=== PATIENT | female | born 1980 | race Caucasian/White ===

== ENCOUNTER 2017-08-20 10:45 | Outpatient (CLI) | payer MEDICARE, BC ==
[2017-08-20] MEDS ORDERED: SYNTHROID100 MCG PO (12:18)
[2017-08-20 12:38] LABS: BASOPHILS 0.3 % (0-2); HEMATOCRIT 45.1 % (36.0-48.0); HEMOGLOBIN 14.8 g/dL (12-16); IMMATURE GRANULOCYTES 0.3 % (0-5); LYMPHOCYTES 24.6 % (15-50); MCHC 32.8 g/dL (31.0-37.0); MCV 88.4 fL (80.0-100.0); MEAN PLATELET VOLUME 10.3 fL (7.4-10.4); MONOCYTES 8.5 % (2-11); NEUTROPHILS 65.3 % (40-80); PLATELET COUNT 332 10x3/uL (130-400); RDW 13.5 % (11.5-14.5)
[2017-08-20 12:47] LABS: CALC OSMOLALITY 275 mosm/kg (275-300); CALCIUM 9.1 mg/dL (8.5-10.1); CARBON DIOXIDE 28.9 mmol/L (21.0-32.0); CHLORIDE - SERUM 104 mmol/L (98-107); CREATININE - SERUM 0.8 mg/dL (0.6-1.3); GLUCOSE 99 mg/dL (74-106); POTASSIUM - SERUM 3.7 mmol/L (3.5-5.1); SODIUM 140 mmol/L (136-145); UREA NITROGEN 5 mg/dL (7-18); eGFR NON AFRICAN AMERICAN 85 mL/min (90-120)
--- NOTE | 2017-08-20 15:56 | NUR ---
PATIENT REQUESTED [employer] FOR DAY OF SURGERY. SANDRA THOMPSON, NURSING MICA MACHINE OPERATOR NOTIFIED.
[2017-09-13 11:33] VITALS: BMI 31.0
== END 2017-08-20 23:59 | disposition home or self-care (01) ==
LOC: D.LAB 10:45 → EDSTATUS 08-23 10:45 → D.PAN 08-23 10:45 → D.OPS 08-23 10:45 → D.LAB 08-23 10:45
PROVIDERS: Surgery
DX: K64.9 Unspecified hemorrhoids (principal); Z01.810 Encounter for preprocedural cardiovascular examination; Z01.811 Encounter for preprocedural respiratory examination; Z01.812 Encounter for preprocedural laboratory examination; Z53.9 Procedure and treatment not carried out, unspecified reason

== ENCOUNTER 2017-09-13 08:59 | Day surgery (SDC) | payer MEDICARE, BC ==
--- NOTE | 2017-09-12 08:55 | NUR ---
[place] NOTE: KENNEDI, NURSING COMBINE OPERATOR NOTIFIED PATIENT IS DEAF AND NEEDS INTERPRETOR DAY OF SURGERY.
[~2017-09-13] VITALS: Ht 172.7 cm; Wt 92.5 kg
[~2017-09-13 08:59] MED LIST: SYNTHROID100 MCG PO
[2017-09-13 10:21] LABS: ANION GAP 12.7 mmol/L (8-16); CARBON DIOXIDE 29.3 mmol/L (21.0-32.0)
[2017-09-13 10:35] LABS: BASOPHILS 0.2 % (0-2); EOSINOPHILS 0.2 % (0-7); HEMATOCRIT 48.3 % (36.0-48.0); HEMOGLOBIN 15.7 g/dL (12-16); IMMATURE GRANULOCYTES 0.3 % (0-5); LYMPHOCYTES 10.2 % (15-50); MCH 28.9 pg (26.0-34.0); MCHC 32.5 g/dL (31.0-37.0); MEAN PLATELET VOLUME 10.3 fL (7.4-10.4); MONOCYTES 7.6 % (2-11); NEUTROPHILS 81.5 % (40-80); RBC 5.43 10x6/uL (4.00-5.40); WBC 18.5 10x3/uL (4.8-10.8)
[2017-09-13 10:38] LABS: PLATELET COUNT 400 10x3/uL (130-400)
[2017-09-13] MEDS ORDERED: GABAPENTIN100 MG PO (11:32)
[2017-09-13 11:33] VITALS: BP 147/89; Ht 172.7 cm; Wt 92.5 kg
--- NOTE | 2017-09-13 11:56 | NUR ---
1115 TERMITE CONTROL TECHNICIAN IN ROOM DURING INTITAL INTAKE AND ASSESSSMENT.
[2017-09-13 12:25] LABS: HCG SERUM NEGATIVE (NEGATIVE)
[2017-09-13] MEDS ORDERED: PERCOCET 10/3251 TA1 PO (13:14)
--- NOTE | 2017-09-13 15:39 | NUR ---
1530 DISCHARGE INSTRUCTIONS COMPLETE WITH SPA DIRECTOR/FINANCE AT BEDSIDE. SPA DIRECTOR/FINANCE AT BEDSIDE SINCE PATIENT RETURNED TO PHASE 2. PRESCRIPTION FOR PERCOCET GIVEN. SITZ BATH INSTRUCTIONS GIVEN. ESCORTED OUT BY VOLUNTEER.
--- NOTE | 2017-09-18 12:19 | OP ---
PATIENT NAME: KALE HERRMANN MEDICAL RECORD: [id number] :76 LOCATION:D[facility]OPS ADMISSION DATE: SURGEON: FREDY SLATER MD DATE OF OPERATION: 09/13/2017 PREOPERATIVE DIAGNOSES: 1. Hemorrhoids. 2. Hyperthyroidism. 3. Hypertension. POSTOPERATIVE DIAGNOSES: 1. Hemorrhoids. 2. Hyperthyroidism. 3. Hypertension. PROCEDURES: 1. Anal exam under anesthesia. 2. Excision of left posterior hemorrhoid. SURGEON: Fredy Slater MD REPORT OF PROCEDURE: The patient was placed in the jackknife prone position and the perianal region was prepped and draped in sterile fashion. Anoscope was inserted and a 360-degree inspection was performed. There really was not much of an internal component at any point found for the hemorrhoids. The largest hemorrhoidal column was on the left side, more in the posterior setting. This was a fairly large collection, and with manipulation of the anoscope, there was some bleeding from this. Decision was made at that time to just perform a single-column hemorrhoidectomy. A 2-0 chromic was placed at the base of the hemorrhoid. This was tied down tightly and left in place. The hemorrhoid was then excised using electrocautery down to the level of the patient's sphincteric musculature. The sphincters were protected during this portion of the procedure. Any bleeding at the conclusion of this was then treated with electrocautery. We then used the previously placed stitch and ran it in a locking fashion out towards the anoderm. We then inserted a piece of Gelfoam dipped in [place] into the anus. COMPLICATIONS: None. CONDITION: Stable. ANESTHESIA: General endotracheal. BLOOD LOSS: Minimal. TRANSINT:[id number] Voice Confirmation ID: [id number] DOCUMENT ID: [id number] OPERATIVE REPORT [id number] KALE HERRMANN FREDY SLATER MD at 1219 CC: MATHEW SANCHEZ MD and JUSTIN HEARN APN [id number] DICTATION DATE: 09/13/17 1319 DRIVING TEACHER: 09/13/17 1521 [facility] 09/13/17 [place] [address]
== END 2017-09-13 15:30 | disposition home or self-care (01) ==
LOC: D.OPS 08:59
PROVIDERS: Surgery
DX: K64.8 Other hemorrhoids (principal); E05.90 Thyrotoxicosis, unspecified without thyrotoxic crisis or storm; I10 Essential (primary) hypertension; Z01.812 Encounter for preprocedural laboratory examination